=== PATIENT | male | born 1955 | race Caucasian/White ===

== ENCOUNTER 2016-05-14 10:17 | Inpatient (IN) | payer MEDICAID ==
[2016-05-14] MEDS ORDERED: NORMAL SALINE 1000 ML 1,000 ML IV ONE (10:24)
[2016-05-14 11:12] LABS: APPEARANCE,URINE CLEAR; BILIRUBIN,URINE NEGATIVE (NEGATIVE); GLUCOSE, URINE NEGATIVE (NEGATIVE); KETONES,URINE TRACE mg/dL (NEGATIVE); LEUKOCYTE ESTERASE,URINE NEGATIVE (NEGATIVE); NITRITE,URINE NEGATIVE (NEGATIVE); PROTEIN,URINE NEGATIVE (NEGATIVE); URINE SPECIFIC GRAVITY 1.018; UROBILINOGEN,URINE NEGATIVE mg/dL (<2.0)
[2016-05-14 11:25] LABS: ABSOLUTE LYMPHOCYTES (AUTO) 0.7 10^3/uL (0.5-4.7); ABSOLUTE MONOCYTES (AUTO) 0.3 10^3/uL (0.1-1.4); ABSOLUTE NEUT (AUTO) 10.9 10^3/uL (1.7-8.2); BASOPHILS % (AUTO) 0.3 % (0-2); EOSINOPHILS % (AUTO) 0.3 % (0-6); HEMATOCRIT 47.7 % (37.9-51.0); HEMOGLOBIN 15.9 g/dL (13.5-17.0); LYMPHOCYTES % (AUTO) 5.8 % (13-45); MEAN CORPUSCULAR HEMOGLOBIN 31.1 pg (27.0-33.4); MEAN CORPUSCULAR HGB CONC 33.3 g/dL (32.0-36.0); MEAN CORPUSCULAR VOLUME 93 fl (80-97); MONOCYTES % (AUTO) 2.7 % (3-13); RED BLOOD COUNT 5.11 10^6/uL (4.35-5.55); SEGMENTED NEUTROPHILS % (AUTO) 90.9 % (42-78); WHITE BLOOD COUNT 12.1 10^3/uL (4.0-10.5)
[2016-05-14 11:43] LABS: ALANINE AMINOTRANSFERASE 40 U/L (21-72); ALBUMIN 3.4 g/dL (3.5-5.0); ALKALINE PHOSPHATASE 101 U/L (38-126); ANION GAP 8 (5-19); ASPARTATE AMINO TRANSFERASE 22 U/L (17-59); BLOOD UREA NITROGEN 12 mg/dL (7-20); CALCIUM 9.2 mg/dL (8.4-10.2); CARBON DIOXIDE 24 mmol/L (22-30); CHLORIDE 110 mmol/L (98-107); CREATININE RESULT 0.79 mg/dL (0.52-1.25); GLUCOSE 106 mg/dL (75-110); POTASSIUM 4.9 mmol/L (3.6-5.0); TOTAL PROTEIN 6.5 g/dL (6.3-8.2)
[2016-05-14] MEDS ORDERED: MECLIZINE HCL 25 MG TABLET PO ONE (12:26)
[2016-05-14] MEDS ORDERED: PROMETHAZINE HCL INJ 25 MG/1 ML VIAL IV ONE (13:42)
--- NOTE | 2016-05-14 13:47 | ER Document Report ---
ED Dizziness/Weakness - General Chief Complaint: Dizziness Stated Complaint: NAUSEA Information source: Patient Notes: 61-year-old male with past medical history as recorded and presents today with the onset yesterday of feeling some decreased hearing in his left ear. Patient states he has chronic right ear loss of hearing but when he was a kid with a perforated tympanic membrane that he states is never healed. Patient also states starting last night he felt some "rapid room spinning". He also states some nausea and vomiting. He denies any and all headache, neck pain, chest pain , abdominal pain, palpitations, weakness or numbness. Patient denies any recent upper respiratory tract infections. He denies any tinnitus or taking large amounts of aspirin. TRAVEL OUTSIDE OF THE [place] IN LAST 30 DAYS: No - HPI Patient complains to provider of: Vertigo Onset: Other - See above Onset/Duration: Sudden Quality of pain: No pain Severity: Severe Pain Level: Denies Context: Vertigo Associated symptoms: Other - See above Exacerbated by: Change in position, Movement of head Baseline gait: Walks w/o assistance - Related Data Allergies/Adverse Reactions: No Known Drug Allergies Allergy (Verified 05/14/16 11:08) Past Medical History - General Information source: Patient - Social History Smoking Status: Current Every Day Smoker Cigarette use (# per day): No Chew tobacco use (# tins/day): No Smoking Education Provided: No Drug Abuse: None Family History: Reviewed & Not Pertinent Patient has suicidal ideation: No Patient has homicidal ideation: No - Past Medical History Cardiac Medical History: Reports: Hx Heart Attack Renal/ Medical History: Denies: Hx Peritoneal Dialysis Review of Systems - Review of Systems Constitutional: denies: Fever EENT: denies: Eye discharge, Nose discharge Cardiovascular: denies: Chest pain, Palpitations Respiratory: denies: Short of breath Gastrointestinal: Vomiting. denies: Abdominal pain Genitourinary: denies: Dysuria Musculoskeletal: denies: Leg swelling Skin: Other - no hives. denies: Rash Neurological/Psychological: Other - no slurred speech -: Yes All other systems reviewed and negative Physical Exam - Vital signs Vitals: Temp Pulse Resp BP Pulse Ox 98 F 57 L 18 133/83 H 98 05/14/16 10:32 05/14/16 10:32 05/14/16 10:32 05/14/16 10:32 05/14/16 10:32 Notes: Reviewed vital signs and nursing note as charted by RN. CONSTITUTIONAL: Alert and oriented and responds appropriately to questions. Well -appearing; well-nourished HEAD: Normocephalic; atraumatic EYES: PERRL; no obvious nystagmus ENT: Normal nose; no rhinorrhea; moist mucous membranes; pharynx without lesions noted; no mastoid swelling or tenderness. Patient has a right tympanic membrane rate in the center of the tympanic membrane consistent with prior history. The left tympanic membrane is very clearly visualized with no obvious effusions with good landmarks present. NECK: Supple without meningismus; non-tender; no carotid bruits; no cervical lymphadenopathy, no masses CARD: Regular rate and rhythm; no murmurs, no clicks, no rubs, no gallops; symmetric distal pulses RESP: Normal chest excursion without splinting or tachypnea; breath sounds clear and equal bilaterally; no wheezes, no rhonchi, no rales ABD/GI: Normal bowel sounds; non-distended; soft, non-tender BACK: The back appears normal and is non-tender to palpation, there is no CVA tenderness EXT: Normal ROM in all joints; non-tender to palpation; no cyanosis, no effusions, no edema SKIN: Normal color for age and race; warm; dry; good turgor; capillary refill < 2 seconds; no acute lesions noted NEURO: CN II through XII are intact. 5 out of 5 bilateral upper and lower show any strength with sensation intact to light touch. No nystagmus noted. Normal finger-nose bilaterally. PSYCH: The patient's mood and manner are appropriate. Grooming and personal hygiene are appropriate. Course - Re-evaluation Re-evalutation: 05/14/16 13:47 Given the history and physical examination with the patient's age I will provide meclizine, nausea medications, and attempt obtain a CT scan of the head and basic labs including an EKG. 05/14/16 14:37 Labs and troponin as recorded. Secondary to the vertigo, Phenergan and meclizine were provided prior to CT scan completion. Patient still has no focal neurological deficits and denies any pain. 05/14/16 15:20 EKG shows a heart of 79, normal sinus rhythm, normal axis, poor wave progression , no obvious ST elevation or depression. The radiologist called me and states what she believes to be multiple metastatic lesions to the brain. No obvious primary source located. No severe edema or signs of impending herniation. I have ordered an x-ray of the chest as well as a MRI with and without of the brain according to the radiologist's recommendations. Patient will be admitted given the vertigo, vomiting, hearing loss, and brain CT scan results. - Vital Signs Vital signs: Temp Pulse Resp BP Pulse Ox 98 F 66 17 122/85 96 05/14/16 10:32 05/14/16 13:40 05/14/16 13:40 05/14/16 13:40 05/14/16 13:40 - Laboratory Result Diagrams: 05/14/16 11:01 05/14/16 11:01 Laboratory results interpreted by me: 05/14/16 05/14/16 05/14/16 10:40 11:01 11:01 WBC 12.1 H Seg Neutrophils % 90.9 H Lymphocytes % 5.8 L Monocytes % 2.7 L Absolute Neutrophils 10.9 H Chloride 110 H Albumin 3.4 L Urine Ketones TRACE H Urine Ascorbic Acid 40 H Discharge - Discharge Clinical Impression: Lesion of brain, Vertigo Vomiting Qualifiers: Vomiting type: unspecified Vomiting Intractability: non-intractable Nausea presence: with nausea Qualified Code(s): R11.2 - Nausea with vomiting, unspecified Hearing loss of left ear Qualifiers: Hearing loss type: unspecified Qualified Code(s): H91.92 - Unspecified hearing loss, left ear Condition: Fair Disposition: ADMITTED INPATIENT Admitting Provider: Hospitalist Unit Admitted: Medical Floor
[2016-05-14] MEDS ORDERED: ONDANSETRON HCL INJ/PF 4 MG/2 ML SDV IV PRN (15:08)
[2016-05-14] MEDS ORDERED: PROMETHAZINE HCL 25 MG SUPP.RECT PR PRN (15:08)
[2016-05-14] MEDS ORDERED: ACETAMINOPHEN 325 MG TABLET PO PRN (15:08)
[2016-05-14] MEDS ORDERED: DOCUSATE SODIUM 100 MG CAPSULE PO PRN (15:08)
[2016-05-14] MEDS ORDERED: DEXTROSE 50%-WATER 25 GM/50 ML DISP.SYRIN IV PRN ×2 (15:16)
[2016-05-14] MEDS ORDERED: GLUCAGON,HUMAN RECOMB 1 MG INJ IM PRN (15:16)
[2016-05-14] MEDS ORDERED: DEXTROSE 40% GEL 15 GM TUBE PO PRN ×2 (15:16)
[2016-05-14] MEDS ORDERED: DEXAMETHASONE SOD PHOS INJ 10 MG/1 ML VIAL IV ONE (15:45)
[2016-05-14] MEDS: NORMAL SALINE 1000 ML 1,000 ML IV PRN (15:50)
--- NOTE | 2016-05-14 16:37 | PDOC H&P ---
History of Present Illness Admission Date/PCP: 05/14/16 15:08 DEBORAH CISNEROS History of Present Illness: ALMA CASTILLO is a 61 year old male with a history of prostate cancer status post radiation, myocardial infarction, hypertension, hyperlipidemia who presents to the emergency department with complaints of dizziness. Patient reports that yesterday he abruptly lost most of his hearing in his left ear. He reports then today became extremely dizzy accompanied by nausea vomiting beginning at 4 AM. Patient does report some blurred vision generalized decreased appetite. His family notices that he's been stumbling lately. CAT scan done in the emergency department reveals likely metastatic disease. He is referred to hospital service for treatment of his nausea vomiting and dizziness and further evaluation. Past Medical History Cardiac Medical History: Reports: Myocardial Infarction Past Surgical History Past Surgical History: Reports: Cardiac Catheterization, Coronary Artery Bypass Graft Social History Smoking Status: Current Every Day Smoker Frequency of Alcohol Use: None Hx Recreational Drug Use: No Hx Prescription Drug Abuse: No - Advance Directive Resuscitation Status: Full Code Surrogate healthcare decision maker:: Son Family History Family History: Malignancy Parental Family History Reviewed: Yes Children Family History Reviewed: Yes Sibling(s) Family History Reviewed.: Yes Medication/Allergy Allergies/Adverse Reactions: No Known Drug Allergies Allergy (Verified 05/14/16 11:08) Review of Systems Constitutional: PRESENT: anorexia. ABSENT: chills, fever(s), headache(s), weight gain, weight loss Eyes: PRESENT: visual disturbances Ears: PRESENT: hearing changes Nose, Mouth, and Throat: PRESENT: vertigo. ABSENT: headache(s), sore throat Cardiovascular: ABSENT: chest pain, dyspnea on exertion, edema, orthropnea, palpitations Respiratory: ABSENT: cough, dyspnea, hemoptysis, sputum Gastrointestinal: PRESENT: hematochezia - Occasionally, none recently. ABSENT: abdominal pain, constipation, diarrhea, hematemesis, melena, nausea, vomiting Genitourinary: ABSENT: dysuria, hematuria, nocturia Musculoskeletal: ABSENT: joint swelling Integumentary: ABSENT: rash, wounds Neurological: PRESENT: lack of coordination, vertigo. ABSENT: abnormal gait, abnormal speech, confusion, convulsions, dizziness, focal weakness, syncope Psychiatric: ABSENT: anxiety, depression, homidical ideation, suicidal ideation Endocrine: ABSENT: cold intolerance, heat intolerance, polydipsia, polyuria Hematologic/Lymphatic: ABSENT: easy bleeding, easy bruising Physical Exam Vital Signs: Temp Pulse Resp BP Pulse Ox 98 F 72 17 138/99 H 96 05/14/16 10:32 05/14/16 15:25 05/14/16 15:25 05/14/16 15:25 05/14/16 15:25 General appearance: PRESENT: no acute distress, well-developed, well-nourished Head exam: PRESENT: atraumatic, normocephalic Eye exam: PRESENT: conjunctiva pink, nystagmus. ABSENT: EOMI - Superior oblique impaired, PERRLA - Anisocoria, scleral icterus Ear exam: PRESENT: normal external ear exam Mouth exam: PRESENT: moist, tongue midline Neck exam: PRESENT: full ROM. ABSENT: carotid bruit, JVD, lymphadenopathy, thyromegaly, tracheal deviation Respiratory exam: PRESENT: clear to auscultation dhruv, prolonged expiratory phas , symmetrical, unlabored. ABSENT: crackles, rales, rhonchi, tachypnea, wheezes Cardiovascular exam: PRESENT: RRR, +S1, +S2. ABSENT: diastolic murmur, gallop, rubs, systolic murmur Pulses: PRESENT: normal dorsalis pedis pul Vascular exam: PRESENT: normal capillary refill GI/Abdominal exam: PRESENT: normal bowel sounds, soft. ABSENT: distended, firm , guarding, mass, organolmegaly, rebound, rigid, tenderness Rectal exam: PRESENT: deferred Extremities exam: PRESENT: full ROM. ABSENT: calf tenderness, clubbing, pedal edema Neurological exam: PRESENT: alert, awake, oriented to person, oriented to place , oriented to time, oriented to situation. ABSENT: CN II-XII grossly intact - CN palsy, CN VIII, motor sensory deficit Psychiatric exam: PRESENT: appropriate affect, normal mood. ABSENT: homicidal ideation, suicidal ideation Skin exam: PRESENT: dry, intact, warm. ABSENT: cyanosis, rash Results Laboratory Results: 05/14/16 05/14/16 05/14/16 10:40 11:01 11:01 WBC 12.1 H Hgb 15.9 Hct 47.7 Plt Count 235 Creatinine 0.79 Troponin I Urine Ketones TRACE H 05/14/16 11:01 WBC Hgb Hct Plt Count Creatinine Troponin I < 0.012 Urine Ketones Impressions: Head CT 05/14/16 12:26 IMPRESSION: Multiple high density lesions in the white matter worrisome for metastatic disease Chest X-Ray 05/14/16 15:00 IMPRESSION: COPD. NO ACUTE RADIOGRAPHIC FINDING IN THE CHEST. Assessment & Plan - Diagnosis (1) Brain metastasis Is this a current diagnosis for this admission?: YesPlan: Patient has known prostate malignancy. Though possible, unlikely to be a new primary. Will initiate patient on dexamethasone 10 mg IV every 6. MRI with contrast has been ordered. Consult oncology and obtain outside records. (2) Coronary artery disease Qualifiers: Coronary Disease-Associated Artery/Lesion type: [place] artery [place] vs. transplanted heart: [place] heart Associated angina: without angina Qualified Code(s): I25.10 - Atherosclerotic heart disease of [place] coronary artery without angina pectoris Is this a current diagnosis for this admission?: YesPlan: Patient reports history of [place] 7 and had a three-vessel CABG as well as PTCA. Patient is on metoprolol, lisinopril, Lipitor and aspirin. (3) Tobacco abuse Is this a current diagnosis for this admission?: YesPlan: Patient has been advised to stop smoking. He has been offered nicotine replacement. (4) Hyperthyroidism Is this a current diagnosis for this admission?: YesPlan: Check TSH and free T4 and free T3. Continue patient's methimazole. (5) Hematochezia Is this a current diagnosis for this admission?: YesPlan: Obtain occult blood. (6) Mild dehydration Is this a current diagnosis for this admission?: YesPlan: NS@150mL/hr. Monitor BUN/Crea (7) Vertigo Is this a current diagnosis for this admission?: YesPlan: We will improved with steroids. Have also added Ativan for intractable nausea vomiting - Time Time Spent: 50 to 70 Minutes Medications reviewed and adjusted accordingly: Yes - Inpatient Certification Based on my medical assessment, after consideration of the patient's comorbidities, presenting symptoms, or acuity I expect that the services needed warrant INPATIENT care.: Yes I certify that my determination is in accordance with my understanding of Medicare's requirements for reasonable and necessary INPATIENT services [42 CFR 412.3e].: Yes Medical Necessity: Significant Comorbidiites Make Outpatient Treatment Too Risky , Need For IV Fluids Post Hospital Care: D/C Team Facilitator Documentation
--- NOTE | 2016-05-14 19:25 | EKG REPORT ---
SEVERITY:- ABNORMAL ECG - SINUS RHYTHM ABNRM R PROG, CONSIDER ASMI OR LEAD PLACEMENT : Confirmed by: Reji Maza 14-May-2016 19:24:23
[2016-05-14] MEDS: METHIMAZOLE 5 MG TABLET PO SCH (21:46)
[2016-05-14] MEDS: ATORVASTATIN CALCIUM 80 MG TABLET PO SCH (22:00)
[2016-05-14] MEDS: METOPROLOL TARTRATE 25 MG TABLET PO SCH (22:00)
[2016-05-14] MEDS: DEXAMETHASONE SOD PHOS INJ 10 MG/1 ML VIAL IV SCH (22:00)
[2016-05-14] MEDS: LORAZEPAM INJ 2 MG/1 ML VIAL IV PRN (22:00)
[2016-05-14] MEDS ORDERED: INFLUENZA ADLT QUAD (36MOS+) 2016-17 VAC 0.5 ML SYR IM PRN (23:05)
[2016-05-14] MEDS: INSULIN LISPRO 100 UNIT/ML 3 ML VIAL SUBCUT PRN (23:27)
[2016-05-15] MEDS: DEXAMETHASONE SOD PHOS INJ 10 MG/1 ML VIAL IV SCH ×4 (02:32→20:32)
[2016-05-15 06:06] LABS: ABSOLUTE LYMPHOCYTES (AUTO) 0.7 10^3/uL (0.5-4.7); ABSOLUTE MONOCYTES (AUTO) 0.1 10^3/uL (0.1-1.4); ABSOLUTE NEUT (AUTO) 10.6 10^3/uL (1.7-8.2); BASOPHILS % (AUTO) 0.4 % (0-2); HEMATOCRIT 42.7 % (37.9-51.0); HEMOGLOBIN 14.2 g/dL (13.5-17.0); HGB HCT DIFFERENCE -0.1; LYMPHOCYTES % (AUTO) 6.1 % (13-45); MEAN CORPUSCULAR HEMOGLOBIN 30.8 pg (27.0-33.4); MEAN CORPUSCULAR HGB CONC 33.3 g/dL (32.0-36.0); MEAN CORPUSCULAR VOLUME 92 fl (80-97); MONOCYTES % (AUTO) 0.5 % (3-13); RED BLOOD COUNT 4.62 10^6/uL (4.35-5.55); RED CELL DISTRIBUTION WIDTH 13.6 % (11.5-14.0); WHITE BLOOD COUNT 11.4 10^3/uL (4.0-10.5)
[2016-05-15 06:26] LABS: ANION GAP 11 (5-19); BLOOD UREA NITROGEN 12 mg/dL (7-20); CALCIUM 9.7 mg/dL (8.4-10.2); CARBON DIOXIDE 19 mmol/L (22-30); CHLORIDE 112 mmol/L (98-107); CREATININE RESULT 0.72 mg/dL (0.52-1.25); GLUCOSE 132 mg/dL (75-110); MAGNESIUM 1.9 mg/dL (1.6-2.3); POTASSIUM 4.4 mmol/L (3.6-5.0); SODIUM 141.9 mmol/L (137-145)
--- NOTE | 2016-05-15 08:48 | PDOC CONSULTATION ---
Consultation Consult Date: 05/15/16 Attending physician:: MING TOTH Consult reason:: Concern brain lesions, hx of prostate ca History of Present Illness Admission Date/PCP: 05/14/16 15:08 DEBORAH CISNEROS Patient complains of: acute L hearing loss, nausea, dizziness History of Present Illness: 61-year-old male with known history of what sounds like early stage prostate cancer status post radiation, would've been completed and the last one to 2 years, was done through [facility], he had several six-month follow-ups per his recollection. He comes in with acute onset left hearing loss , he has lifelong right-sided hearing loss. He is also had complaints of severe nausea and vomiting after he gets up, as well as dizziness. This is all over the last 24-48 hours prior to admission. Initially, CT noncontrasted of the head was concerning for brain lesions, possibly consistent with metastatic disease, however MRI of the brain was done and this shows innumerable lesions in the cerebrum cerebellum and rose area, that radiology feels is actually cavernous hemangiomas. He feels a little bit better today. Past Medical History Cardiac Medical History: Reports: Myocardial Infarction Malignancy Medical History: Reports: Other - Prostate cancer Past Surgical History Past Surgical History: Reports: Cardiac Catheterization, Coronary Artery Bypass Graft Social History Smoking Status: Current Every Day Smoker Frequency of Alcohol Use: None Hx Recreational Drug Use: No Hx Prescription Drug Abuse: No - Advance Directive Resuscitation Status: Full Code Family History Family History: Malignancy Parental Family History Reviewed: Yes Children Family History Reviewed: Yes Sibling(s) Family History Reviewed.: Yes Medication/Allergy Allergies/Adverse Reactions: No Known Drug Allergies Allergy (Verified 05/14/16 11:08) Review of Systems Constitutional: PRESENT: headache(s), other - Nausea Cardiovascular: ABSENT: chest pain, dyspnea on exertion, edema, orthropnea, palpitations Respiratory: ABSENT: cough, hemoptysis Gastrointestinal: ABSENT: abdominal pain, constipation, diarrhea, hematemesis, hematochezia, nausea, vomiting Neurological: PRESENT: dizziness, lack of coordination, weakness Physical Exam Vital Signs: Temp Pulse Resp BP Pulse Ox 97.5 F 77 20 97/50 L 93 05/15/16 07:56 05/15/16 07:56 05/15/16 07:56 05/15/16 07:56 05/15/16 07:56 Intake & Output 05/14/16 05/15/16 05/16/16 06:59 06:59 06:59 Intake Total 1740 Output Total 300 Balance 1440 Weight 76 kg Results Laboratory Results: 05/15/16 05:04 05/15/16 05:04 05/15/16 05/15/16 05:04 05:04 WBC 11.4 H RBC 4.62 Hgb 14.2 Hct 42.7 MCV 92 MCH 30.8 MCHC 33.3 RDW 13.6 Plt Count 232 Seg Neutrophils % 93.0 H Lymphocytes % 6.1 L Monocytes % 0.5 L Eosinophils % 0.0 Basophils % 0.4 Absolute Neutrophils 10.6 H Absolute Lymphocytes 0.7 Absolute Monocytes 0.1 Absolute Eosinophils 0.0 Absolute Basophils 0.0 Sodium 141.9 Potassium 4.4 Chloride 112 H Carbon Dioxide 19 L Anion Gap 11 BUN 12 Creatinine 0.72 Est GFR ( Amer) > 60 Est GFR (Non-Af Amer) > 60 Glucose 132 H Calcium 9.7 Magnesium 1.9 Impressions: Head CT 05/14/16 12:26 IMPRESSION: Multiple high density lesions in the white matter worrisome for metastatic disease Chest X-Ray 05/14/16 15:00 IMPRESSION: COPD. NO ACUTE RADIOGRAPHIC FINDING IN THE CHEST. Head MRI 05/14/16 15:05 IMPRESSION: 1. INNUMERABLE LESIONS THROUGHOUT THE BRAIN INCLUDING THE CEREBRAL HEMISPHERES, CEREBELLUM, AND ROSE. 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 NO ENHANCING LESIONS. 2. MILD CHRONIC MICRO-VASCULAR ISCHEMIC CHANGES. 3. FLUID SIGNAL IN THE RIGHT MASTOID. Status: Image reviewed by me Assessment & Plan - Diagnosis (1) Brain metastasis Is this a current diagnosis for this admission?: YesPlan: Concern of brain metastasis, I need to talk to the radiologist directly about this read, have not seen where there was multiple cavernous hemangiomas, usually these are single events, recommended for hospitalist to send PSA, but it would be very unlikely for an early stage prostate cancer to go to the brain without going through rectoperineal adenopathy liver and lung. If the PSA is very high, then certainly a spread would be much more likely. - Time Time Spent: Greater than 70 Minutes Critical Time spent with patient: 35 or more minutes - Inpatient Certification Based on my medical assessment, after consideration of the patient's comorbidities, presenting symptoms, or acuity I expect that the services needed warrant INPATIENT care.: Yes I certify that my determination is in accordance with my understanding of Medicare's requirements for reasonable and necessary INPATIENT services [42 CFR 412.3e].: Yes Medical Necessity: Failure to Improve With Outpatient Therapy, Risk of Complication if Not Cared For in Hospital
[2016-05-15] MEDS: METOPROLOL TARTRATE 25 MG TABLET PO SCH ×2 (09:11→22:47)
[2016-05-15] MEDS: METHIMAZOLE 5 MG TABLET PO SCH ×2 (11:11→22:45)
[2016-05-15] MEDS: NORMAL SALINE 1000 ML 1,000 ML IV PRN (11:13)
[2016-05-15] MEDS: INSULIN LISPRO 100 UNIT/ML 3 ML VIAL SUBCUT PRN ×2 (12:05→15:58)
[2016-05-15] MEDS ORDERED: MECLIZINE HCL 25 MG TABLET PO PRN (13:12)
[2016-05-15] MEDS ORDERED: CALCIUM CARBONATE 500 MG TABLET PO ONE (20:40)
[2016-05-15] MEDS: CALCIUM CARBONATE 500 MG TAB.CHEW PO SCH (22:45)
[2016-05-15] MEDS: LORAZEPAM INJ 2 MG/1 ML VIAL IV PRN (22:45)
[2016-05-15] MEDS: ATORVASTATIN CALCIUM 80 MG TABLET PO SCH (22:45)
[2016-05-16] MEDS: DEXAMETHASONE SOD PHOS INJ 10 MG/1 ML VIAL IV SCH ×4 (02:44→21:29)
--- NOTE | 2016-05-16 04:17 | PDOC PROGRESS REPORT ---
Subjective Progress Note for:: 05/15/16 Subjective:: Patient reports his nausea vomiting and dizziness have improved. He is able to ambulate today. His hearing has somewhat improved.Patient denies chest pain, shortness of breath, abdominal pain, nausea, vomiting, fevers, chills, diarrhea , constipation, headache, new onset weakness. Physical Exam Vital Signs: Temp Pulse Resp BP Pulse Ox 97.5 F 77 20 97/50 L 93 05/15/16 07:56 05/15/16 07:56 05/15/16 07:56 05/15/16 07:56 05/15/16 07:56 Intake & Output 05/14/16 05/15/16 05/16/16 06:59 06:59 06:59 Intake Total 1740 Output Total 300 Balance 1440 Weight 76 kg Exam: General: Awake alert and orientedx3, no acute respiratory distress HEENT: AT/NC, PERRL, EOMI, oropharynx is moist, pink, no scleral icterus, no conjunctival injection Neck: No JVD, trachea midline Chest: Clear to auscultation bilaterally, no wheezes rhonchi or rales CV: Regular rate and rhythm, normal S1 and S2, no murmur, rub, or gallop Abdomen: Soft, nontender to palpation, nondistended, active bowel sounds; no rebound, rigidity, or guarding Extremities: No cyanosis, clubbing or edema Neuro: awake alert and oriented x3, cranial nerves grossly intact with the exception of hearing Psych: Normal mood and affect Results Laboratory Results: 05/15/16 05:04 05/15/16 05:04 05/15/16 05/15/16 05:04 05:04 WBC 11.4 H RBC 4.62 Hgb 14.2 Hct 42.7 MCV 92 MCH 30.8 MCHC 33.3 RDW 13.6 Plt Count 232 Seg Neutrophils % 93.0 H Lymphocytes % 6.1 L Monocytes % 0.5 L Eosinophils % 0.0 Basophils % 0.4 Absolute Neutrophils 10.6 H Absolute Lymphocytes 0.7 Absolute Monocytes 0.1 Absolute Eosinophils 0.0 Absolute Basophils 0.0 Sodium 141.9 Potassium 4.4 Chloride 112 H Carbon Dioxide 19 L Anion Gap 11 BUN 12 Creatinine 0.72 Est GFR ( Amer) > 60 Est GFR (Non-Af Amer) > 60 Glucose 132 H Calcium 9.7 Magnesium 1.9 Impressions: Head CT 05/14/16 12:26 IMPRESSION: Multiple high density lesions in the white matter worrisome for metastatic disease Chest X-Ray 05/14/16 15:00 IMPRESSION: COPD. NO ACUTE RADIOGRAPHIC FINDING IN THE CHEST. Head MRI 05/14/16 15:05 IMPRESSION: 1. INNUMERABLE LESIONS THROUGHOUT THE BRAIN INCLUDING THE CEREBRAL HEMISPHERES, CEREBELLUM, AND ROSE. 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 NO ENHANCING LESIONS. 2. MILD CHRONIC MICRO-VASCULAR ISCHEMIC CHANGES. 3. FLUID SIGNAL IN THE RIGHT MASTOID. Assessment & Plan - Diagnosis (1) Brain metastasis Is this a current diagnosis for this admission?: YesPlan: Patient has known prostate malignancy. Though possible, unlikely to be a new primary. Patient on dexamethasone 10 mg IV every 6. MRI with contrast reveals multiple lesions with possible AVM, mild chronic microvascular ischemic changes, and fluid in the right mastoid. PSA was essentially negative. As this could also represent a vascular disease have considered AGUILAR, will send CRP and sedimentation rate. This could also represent the sequela of patient's prior meningitis as a child. We'll continue with possible metastatic workup and obtain CT chest abdomen and pelvis. (2) Coronary artery disease Qualifiers: Coronary Disease-Associated Artery/Lesion type: [place] artery [place] vs. transplanted heart: [place] heart Associated angina: without angina Qualified Code(s): I25.10 - Atherosclerotic heart disease of [place] coronary artery without angina pectoris Is this a current diagnosis for this admission?: YesPlan: Patient reports history of [place] 7 and had a three-vessel CABG as well as PTCA. Patient is on metoprolol, lisinopril, Lipitor and aspirin. (3) Tobacco abuse Is this a current diagnosis for this admission?: YesPlan: Patient has been advised to stop smoking. He has been offered nicotine replacement. (4) Hyperthyroidism Is this a current diagnosis for this admission?: YesPlan: Check TSH and free T4 and free T3. Continue patient's methimazole. (5) Hematochezia Is this a current diagnosis for this admission?: Yes (6) Mild dehydration Is this a current diagnosis for this admission?: Yes (7) Vertigo Is this a current diagnosis for this admission?: YesPlan: Improved with steroids. Have also considered labyrinthitis in this differential. Added meclizine - Time Time Spent with patient: 35 or more minutes Medications reviewed and adjusted accordingly: Yes
[2016-05-16 05:41] LABS: ANION GAP 10 (5-19); BLOOD UREA NITROGEN 13 mg/dL (7-20); CALCIUM 9.4 mg/dL (8.4-10.2); CARBON DIOXIDE 21 mmol/L (22-30); CHLORIDE 111 mmol/L (98-107); CREATININE RESULT 0.72 mg/dL (0.52-1.25); GLUCOSE 124 mg/dL (75-110); POTASSIUM 4.2 mmol/L (3.6-5.0); SODIUM 142.1 mmol/L (137-145)
[2016-05-16 05:52] LABS: FREE T3 3.99 pg/mL (2.77-5.27)
[2016-05-16 06:02] LABS: HEMATOCRIT 39.2 % (37.9-51.0); HEMOGLOBIN 13.1 g/dL (13.5-17.0); HGB HCT DIFFERENCE 0.1; MEAN CORPUSCULAR HEMOGLOBIN 30.9 pg (27.0-33.4); MEAN CORPUSCULAR HGB CONC 33.3 g/dL (32.0-36.0); MEAN CORPUSCULAR VOLUME 93 fl (80-97); RED BLOOD COUNT 4.23 10^6/uL (4.35-5.55); RED CELL DISTRIBUTION WIDTH 13.9 % (11.5-14.0); WHITE BLOOD COUNT 18.5 10^3/uL (4.0-10.5)
[2016-05-16 06:06] LABS: THYROID STIMULATING HORMONE 0.03 uIU/mL (0.47-4.68)
[2016-05-16 06:19] LABS: BASOPHILS % (MANUAL) 0 % (0-2); EOSINOPHILS % (MANUAL) 0 % (0-6); LYMPHOCYTES % (MANUAL) 8 % (13-45); TOTAL CELLS COUNTED 100
[2016-05-16 06:20] LABS: ANISOCYTOSIS SLIGHT; BURR CELLS SLIGHT; OVALOCYTES SLIGHT; POIKILOCYTOSIS 1+
--- NOTE | 2016-05-16 09:12 | PDOC PROGRESS REPORT ---
Subjective Progress Note for:: 05/16/16 Subjective:: Had long discussion with radiology, no evidence of brain metastasis, does not show any evidence of areas that may have caused the left hearing loss and hearing loss, spent 45 minutes in discussion with very services and coordination of care. Physical Exam Vital Signs: Temp Pulse Resp BP Pulse Ox 97.3 F 90 20 108/70 96 05/16/16 08:45 05/16/16 08:45 05/16/16 08:45 05/16/16 08:45 05/16/16 08:45 Intake & Output 05/15/16 05/16/16 05/17/16 06:59 06:59 06:59 Intake Total 1740 2520 147 Output Total 300 250 Balance 1440 2270 147 Weight 76 kg 76 kg General appearance: PRESENT: no acute distress, well-developed, well-nourished Head exam: PRESENT: atraumatic, normocephalic Eye exam: PRESENT: conjunctiva pink, EOMI, PERRLA. ABSENT: scleral icterus Ear exam: PRESENT: normal external ear exam Mouth exam: PRESENT: moist, tongue midline Neck exam: ABSENT: carotid bruit, JVD, lymphadenopathy, thyromegaly Respiratory exam: PRESENT: clear to auscultation dhruv. ABSENT: rales, rhonchi, wheezes Cardiovascular exam: PRESENT: RRR. ABSENT: diastolic murmur, rubs, systolic murmur Pulses: PRESENT: normal dorsalis pedis pul Vascular exam: PRESENT: normal capillary refill GI/Abdominal exam: PRESENT: normal bowel sounds, soft. ABSENT: distended, guarding, mass, organolmegaly, rebound, tenderness Rectal exam: PRESENT: deferred Extremities exam: PRESENT: full ROM. ABSENT: calf tenderness, clubbing, pedal edema Neurological exam: PRESENT: alert, awake, oriented to person, oriented to place , oriented to time, oriented to situation, CN II-XII grossly intact. ABSENT: motor sensory deficit Psychiatric exam: PRESENT: appropriate affect, normal mood. ABSENT: homicidal ideation, suicidal ideation Skin exam: PRESENT: dry, intact, warm. ABSENT: cyanosis, rash Results Laboratory Results: 05/16/16 04:50 05/16/16 04:50 05/15/16 05/15/16 05/16/16 05:04 14:18 04:50 WBC 18.5 H RBC 4.23 L Hgb 13.1 L Hct 39.2 MCV 93 MCH 30.9 MCHC 33.3 RDW 13.9 Plt Count 233 Seg Neutrophils % Not Reportable Lymphocytes % Not Reportable Monocytes % Not Reportable Eosinophils % Not Reportable Basophils % Not Reportable Absolute Neutrophils Not Reportable Absolute Lymphocytes Not Reportable Absolute Monocytes Not Reportable Absolute Eosinophils Not Reportable Absolute Basophils Not Reportable Sodium Potassium Chloride Carbon Dioxide Anion Gap BUN Creatinine Est GFR ( Amer) Est GFR (Non-Af Amer) Glucose Calcium C-Reactive Protein < 5.0 Prostate Specific Ag 0.530 TSH Free T4 Free T3 pg/mL 05/16/16 05/16/16 04:50 04:50 WBC RBC Hgb Hct MCV MCH MCHC RDW Plt Count Seg Neutrophils % Lymphocytes % Monocytes % Eosinophils % Basophils % Absolute Neutrophils Absolute Lymphocytes Absolute Monocytes Absolute Eosinophils Absolute Basophils Sodium 142.1 Potassium 4.2 Chloride 111 H Carbon Dioxide 21 L Anion Gap 10 BUN 13 Creatinine 0.72 Est GFR ( Amer) > 60 Est GFR (Non-Af Amer) > 60 Glucose 124 H Calcium 9.4 C-Reactive Protein Prostate Specific Ag TSH 0.03 L Free T4 0.88 Free T3 pg/mL 3.99 05/14/16 22:15 Nasophary (Mrsa Only) MRSA Surveillance Culture - Final NO MRSA RECOVERED Impressions: Head CT 05/14/16 12:26 IMPRESSION: Multiple high density lesions in the white matter worrisome for metastatic disease Chest X-Ray 05/14/16 15:00 IMPRESSION: COPD. NO ACUTE RADIOGRAPHIC FINDING IN THE CHEST. Head MRI 05/14/16 15:05 IMPRESSION: 1. INNUMERABLE LESIONS THROUGHOUT THE BRAIN INCLUDING THE CEREBRAL HEMISPHERES, CEREBELLUM, AND ROSE. 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 NO ENHANCING LESIONS. 2. MILD CHRONIC MICRO-VASCULAR ISCHEMIC CHANGES. 3. FLUID SIGNAL IN THE RIGHT MASTOID. Carotid Doppler Study 05/15/16 00:00 IMPRESSION: NO HEMODYNAMICALLY SIGNIFICANT STENOSIS. Assessment & Plan - Diagnosis (1) Brain metastasis Is this a current diagnosis for this admission?: YesPlan: Thus far no evidence of brain metastasis, at this point, probably will just need to watch and see, hopefully the hearing will resolve. I did discuss her case with radiology and neurosurgery at until who suggested going ahead to do CT imaging to rule out any sort of metastatic disease that could be related to this, this is plan for today, we will review these and follow-up with patient. - Time Time Spent with patient: 35 or more minutes Critical Time spent with patient: 35 or more minutes - Inpatient Certification Based on my medical assessment, after consideration of the patient's comorbidities, presenting symptoms, or acuity I expect that the services needed warrant INPATIENT care.: Yes I certify that my determination is in accordance with my understanding of Medicare's requirements for reasonable and necessary INPATIENT services [42 CFR 412.3e].: Yes Medical Necessity: Risk of Complication if Not Cared For in Hospital
[2016-05-16] MEDS: METOPROLOL TARTRATE 25 MG TABLET PO SCH ×2 (10:06→20:52)
[2016-05-16] MEDS: METHIMAZOLE 5 MG TABLET PO SCH ×2 (10:07→21:29)
[2016-05-16] MEDS: CALCIUM CARBONATE 500 MG TAB.CHEW PO SCH ×4 (10:07→21:29)
[2016-05-16] MEDS: NORMAL SALINE 1000 ML 1,000 ML IV PRN ×2 (10:08→17:45)
[2016-05-16] MEDS: INSULIN LISPRO 100 UNIT/ML 3 ML VIAL SUBCUT PRN (16:53)
--- NOTE | 2016-05-16 18:18 | PDOC PROGRESS REPORT ---
Subjective Progress Note for:: 05/16/16 Subjective:: Patient has continued profound hearing loss. He otherwise has no particular complaints. Patient denies fever, chills, headache, new focal weakness, chest pain, shortness of breath, abdominal pain, nausea, vomiting, diarrhea, constipation. Physical Exam Vital Signs: Temp Pulse Resp BP Pulse Ox 97.1 F 85 14 97/55 L 95 05/16/16 12:00 05/16/16 16:02 05/16/16 16:02 05/16/16 16:02 05/16/16 16:02 Intake & Output 05/15/16 05/16/16 05/17/16 06:59 06:59 06:59 Intake Total 1740 2520 147 Output Total 300 250 Balance 1440 2270 147 Weight 76 kg 76 kg GENERAL: No acute distress, hearing impaired HEENT: Conjunctiva clear, external auditory canals clear, tympanic membranes normal, nonicteric, moist mucous membranes, no JVD, midline trachea RESPIRATORY: Clear to auscultation bilaterally, no wheezes, no rhonchi CARDIAC: Regular rate and rhythm, no murmurs/gallops/rubs ABDOMEN: Soft, nondistended, nontender, positive bowel sounds, no rebound, no guarding EXTREMETIES: No edema, cyanosis, clubbing NEUROLOGIC: Alert, oriented to person/place/time, CN's grossly intact, no focal deficits SKIN: No rash, wounds PSYCH: Normal mood, normal affect Results Laboratory Results: 05/16/16 04:50 05/16/16 04:50 05/16/16 05/16/16 05/16/16 04:50 04:50 04:50 WBC 18.5 H RBC 4.23 L Hgb 13.1 L Hct 39.2 MCV 93 MCH 30.9 MCHC 33.3 RDW 13.9 Plt Count 233 Seg Neutrophils % Not Reportable Lymphocytes % Not Reportable Monocytes % Not Reportable Eosinophils % Not Reportable Basophils % Not Reportable Absolute Neutrophils Not Reportable Absolute Lymphocytes Not Reportable Absolute Monocytes Not Reportable Absolute Eosinophils Not Reportable Absolute Basophils Not Reportable Sodium 142.1 Potassium 4.2 Chloride 111 H Carbon Dioxide 21 L Anion Gap 10 BUN 13 Creatinine 0.72 Est GFR ( Amer) > 60 Est GFR (Non-Af Amer) > 60 Glucose 124 H Calcium 9.4 TSH 0.03 L Free T4 0.88 Free T3 pg/mL 3.99 05/14/16 22:15 Nasophary (Mrsa Only) MRSA Surveillance Culture - Final NO MRSA RECOVERED Impressions: Head CT 05/14/16 12:26 IMPRESSION: Multiple high density lesions in the white matter worrisome for metastatic disease Chest X-Ray 05/14/16 15:00 IMPRESSION: COPD. NO ACUTE RADIOGRAPHIC FINDING IN THE CHEST. Head MRI 05/14/16 15:05 IMPRESSION: 1. INNUMERABLE LESIONS THROUGHOUT THE BRAIN INCLUDING THE CEREBRAL HEMISPHERES, CEREBELLUM, AND ROSE. 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 NO ENHANCING LESIONS. 2. MILD CHRONIC MICRO-VASCULAR ISCHEMIC CHANGES. 3. FLUID SIGNAL IN THE RIGHT MASTOID. Carotid Doppler Study 05/15/16 00:00 IMPRESSION: NO HEMODYNAMICALLY SIGNIFICANT STENOSIS. Abdomen/Pelvis CT 05/16/16 00:00 IMPRESSION: No CT evidence of metastatic disease to the chest abdomen or pelvis given history of prostate cancer Chest CT 05/16/16 00:00 IMPRESSION: No CT evidence of metastatic disease to the chest abdomen or pelvis given history of prostate cancer Assessment & Plan - Diagnosis (1) Abnormal brain MRI Is this a current diagnosis for this admission?: YesPlan: Case discussed extensively with Dr. Wagner of oncology and Dr. Orozco of radiology. It is felt that imaging does not reflect metastatic disease. Possibly more consistent with cavernous hemangiomas according to radiologist. Patient will be referred to Dr. Charli Elizabeth of neurosurgery at [facility] for further evaluation after discharge. (2) Hearing loss in left ear Qualifiers: Hearing loss type: unspecified Qualified Code(s): H91.92 - Unspecified hearing loss, left ear Is this a current diagnosis for this admission?: YesPlan: Etiology unclear. I will refer patient to neurology and ENT as outpatient. Carotid Dopplers negative. (3) Prostate cancer Is this a current diagnosis for this admission?: YesPlan: Patient is being followed by Dr. Wagner of oncology in the hospital. (4) Coronary artery disease Qualifiers: Coronary Disease-Associated Artery/Lesion type: [place] artery [place] vs. transplanted heart: [place] heart Associated angina: without angina Qualified Code(s): I25.10 - Atherosclerotic heart disease of [place] coronary artery without angina pectoris Is this a current diagnosis for this admission?: YesPlan: Continue Lipitor and metoprolol. I probably would not start an antiplatelet regimen given neuroimaging findings. (5) Hyperthyroidism Is this a current diagnosis for this admission?: YesPlan: Continue Tapazole and metoprolol. (6) Tobacco abuse Is this a current diagnosis for this admission?: Yes - Time Time Spent with patient: 35 or more minutes
[2016-05-16] MEDS ORDERED: MAG HYDROX/AL HYDROX/SIMETH SUSP 30 ML UDCUP PO PRN (20:56)
[2016-05-16] MEDS: ATORVASTATIN CALCIUM 80 MG TABLET PO SCH (21:29)
[2016-05-16] MEDS: LORAZEPAM INJ 2 MG/1 ML VIAL IV PRN (21:44)
[2016-05-17] MEDS: NORMAL SALINE 1000 ML 1,000 ML IV PRN (04:23)
[2016-05-17] MEDS: DEXAMETHASONE SOD PHOS INJ 10 MG/1 ML VIAL IV SCH (04:23)
[2016-05-17 08:01] LABS: HEMATOCRIT 39.9 % (37.9-51.0); HEMOGLOBIN 13.4 g/dL (13.5-17.0); HGB HCT DIFFERENCE 0.3; MEAN CORPUSCULAR HGB CONC 33.5 g/dL (32.0-36.0); MEAN CORPUSCULAR VOLUME 93 fl (80-97); RED BLOOD COUNT 4.31 10^6/uL (4.35-5.55); WHITE BLOOD COUNT 14.3 10^3/uL (4.0-10.5)
[2016-05-17 08:26] LABS: ANION GAP 10 (5-19); BLOOD UREA NITROGEN 15 mg/dL (7-20); CALCIUM 9.1 mg/dL (8.4-10.2); CARBON DIOXIDE 23 mmol/L (22-30); CHLORIDE 110 mmol/L (98-107); CREATININE RESULT 0.69 mg/dL (0.52-1.25); GLUCOSE 110 mg/dL (75-110); POTASSIUM 4.1 mmol/L (3.6-5.0); SODIUM 142.8 mmol/L (137-145)
[2016-05-17] MEDS: CALCIUM CARBONATE 500 MG TAB.CHEW PO SCH ×2 (08:35→11:50)
[2016-05-17 08:37] LABS: BASOPHILS % (MANUAL) 0 % (0-2); EOSINOPHILS % (MANUAL) 0 % (0-6); LYMPHOCYTES % (MANUAL) 13 % (13-45); TOTAL CELLS COUNTED 100
[2016-05-17 08:38] LABS: ANISOCYTOSIS SLIGHT; BURR CELLS 1+; POIKILOCYTOSIS 1+
--- NOTE | 2016-05-17 08:44 | PDOC PROGRESS REPORT ---
Subjective Progress Note for:: 05/17/16 Subjective:: No acute events overnight hearing stable Physical Exam Vital Signs: Temp Pulse Resp BP Pulse Ox 99.1 F 47 L 18 98/45 L 93 05/17/16 03:40 05/17/16 03:40 05/17/16 03:40 05/17/16 03:40 05/17/16 03:40 Intake & Output 05/16/16 05/17/16 05/18/16 06:59 06:59 06:59 Intake Total 2520 2173 Output Total 250 1025 Balance 2270 1148 Weight 76 kg 76.2 kg General appearance: PRESENT: no acute distress, well-developed, well-nourished Head exam: PRESENT: atraumatic, normocephalic Eye exam: PRESENT: conjunctiva pink, EOMI, PERRLA. ABSENT: scleral icterus Ear exam: PRESENT: normal external ear exam Mouth exam: PRESENT: moist, tongue midline Neck exam: ABSENT: carotid bruit, JVD, lymphadenopathy, thyromegaly Respiratory exam: PRESENT: clear to auscultation dhruv. ABSENT: rales, rhonchi, wheezes Cardiovascular exam: PRESENT: RRR. ABSENT: diastolic murmur, rubs, systolic murmur Pulses: PRESENT: normal dorsalis pedis pul Vascular exam: PRESENT: normal capillary refill GI/Abdominal exam: PRESENT: normal bowel sounds, soft. ABSENT: distended, guarding, mass, organolmegaly, rebound, tenderness Rectal exam: PRESENT: deferred Extremities exam: PRESENT: full ROM. ABSENT: calf tenderness, clubbing, pedal edema Neurological exam: PRESENT: alert, awake, oriented to person, oriented to place , oriented to time, oriented to situation, CN II-XII grossly intact. ABSENT: motor sensory deficit Psychiatric exam: PRESENT: appropriate affect, normal mood. ABSENT: homicidal ideation, suicidal ideation Skin exam: PRESENT: dry, intact, warm. ABSENT: cyanosis, rash Results Laboratory Results: 05/17/16 07:29 05/17/16 07:29 05/17/16 05/17/16 07:29 07:29 WBC 14.3 H RBC 4.31 L Hgb 13.4 L Hct 39.9 MCV 93 MCH 31.0 MCHC 33.5 RDW 14.0 Plt Count 249 Seg Neutrophils % Not Reportable Lymphocytes % Not Reportable Monocytes % Not Reportable Eosinophils % Not Reportable Basophils % Not Reportable Absolute Neutrophils Not Reportable Absolute Lymphocytes Not Reportable Absolute Monocytes Not Reportable Absolute Eosinophils Not Reportable Absolute Basophils Not Reportable Sodium 142.8 Potassium 4.1 Chloride 110 H Carbon Dioxide 23 Anion Gap 10 BUN 15 Creatinine 0.69 Est GFR ( Amer) > 60 Est GFR (Non-Af Amer) > 60 Glucose 110 Calcium 9.1 05/14/16 22:15 Nasophary (Mrsa Only) MRSA Surveillance Culture - Final NO MRSA RECOVERED Impressions: Head CT 05/14/16 12:26 IMPRESSION: Multiple high density lesions in the white matter worrisome for metastatic disease Chest X-Ray 05/14/16 15:00 IMPRESSION: COPD. NO ACUTE RADIOGRAPHIC FINDING IN THE CHEST. Head MRI 05/14/16 15:05 IMPRESSION: 1. INNUMERABLE LESIONS THROUGHOUT THE BRAIN INCLUDING THE CEREBRAL HEMISPHERES, CEREBELLUM, AND ROSE. 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 NO ENHANCING LESIONS. 2. MILD CHRONIC MICRO-VASCULAR ISCHEMIC CHANGES. 3. FLUID SIGNAL IN THE RIGHT MASTOID. Carotid Doppler Study 05/15/16 00:00 IMPRESSION: NO HEMODYNAMICALLY SIGNIFICANT STENOSIS. Abdomen/Pelvis CT 05/16/16 00:00 IMPRESSION: No CT evidence of metastatic disease to the chest abdomen or pelvis given history of prostate cancer Chest CT 05/16/16 00:00 IMPRESSION: No CT evidence of metastatic disease to the chest abdomen or pelvis given history of prostate cancer Assessment & Plan - Diagnosis (1) Brain metastasis Is this a current diagnosis for this admission?: YesPlan: Today had a long discussion with patient, also reviewed CT imaging, no evidence of metastatic disease. So this point there is no evidence of cancer anywhere, discussed that with patient, he would benefit from either neurology or neurosurgery evaluation as an outpatient, apparently there is a family member goes up to [facility] to a neurologist, it may be good to try and get him up there. Otherwise we will sign off thank you for the opportunity to assist in this patient care, spent 45 minutes in discussion with patient today - Time Time Spent with patient: 35 or more minutes Critical Time spent with patient: 35 or more minutes Anticipated discharge: Home Within: within 24 hours
[2016-05-17] MEDS: LORAZEPAM INJ 2 MG/1 ML VIAL IV PRN (08:47)
[2016-05-17 08:55] VITALS: BP 123/69
[2016-05-17] MEDS: METHIMAZOLE 5 MG TABLET PO SCH (09:45)
[2016-05-17] MEDS: METOPROLOL TARTRATE 25 MG TABLET PO SCH (09:45)
--- NOTE | 2016-05-17 10:08 | PDOC DISCHARGE SUMMARY ---
General - Admit/Disc Date/PCP Admission Date/Primary Care Provider: 05/14/16 15:08 DEBORAH CISNEROS Discharge Date: 05/17/16 - Discharge Diagnosis (1) Abnormal brain MRI Is this a current diagnosis for this admission?: Yes (2) Hearing loss in left ear Is this a current diagnosis for this admission?: Yes (3) Prostate cancer Is this a current diagnosis for this admission?: Yes (4) Coronary artery disease Is this a current diagnosis for this admission?: Yes (5) Hyperthyroidism Is this a current diagnosis for this admission?: Yes (6) Tobacco abuse Is this a current diagnosis for this admission?: Yes - Additional Information Resuscitation Status: Full Code Discharge Diet: Cardiac Discharge Activity: Activity As Tolerated Home Medications: Atorvastatin Calcium [Lipitor 80 mg Tablet] 80 mg PO QHS 05/15/16 Lisinopril [Prinivil] 20 mg PO DAILY 05/15/16 Methimazole [Tapazole 5 Mg Tablet] 7.5 mg PO BID 05/15/16 Metoprolol Tartrate [Lopressor 25 mg Tablet] 25 mg PO Q12 05/15/16 History of Present Illness Patient complains of: Hearing loss History of Present Illness: ALMA CASTILLO is a 61 year old male with a history of prostate cancer status post radiation, myocardial infarction, hypertension, hyperlipidemia who presents to the emergency department with complaints of dizziness. Patient reports that yesterday he abruptly lost most of his hearing in his left ear. He reports then today became extremely dizzy accompanied by nausea vomiting beginning at 4 AM. Patient does report some blurred vision generalized decreased appetite. His family notices that he's been stumbling lately. CAT scan done in the emergency department reveals likely metastatic disease. He is referred to hospital service for treatment of his nausea vomiting and dizziness and further evaluation. Hospital Course Hospital Course: Patient was admitted for evaluation of acute hearing loss in left ear and abnormal CT scan of the brain. CT scan of the brain was initially read as being suggestive of metastatic disease. MRI of the brain showed numerous abnormalities as well. Radiologist Dr. Pierson felt these were more consistent with multiple cavernous hemangiomas rather than metastatic disease. CT scan of chest/abdomen/pelvis did not reveal evidence of metastatic disease. Patient was evaluated by carrillo Wagner of oncology and Dr. Wagner did not feel the patient had metastatic disease. Patient does have a history of prostate cancer however his PSA was normal at 0.53. Case was discussed between Dr. Wagner of oncology and Dr. Charli Elizabeth of neurosurgery at [facility]. Patient will follow-up with Dr. Elizabeth after discharge. It's possible the patient's acute hearing loss is related to cavernous hemangiomas of the brain. Physical Exam Vital Signs: Temp Pulse Resp BP Pulse Ox 97.4 F 80 18 123/69 96 05/17/16 08:00 05/17/16 08:00 05/17/16 08:00 05/17/16 08:00 05/17/16 08:00 Intake & Output 05/16/16 05/17/16 05/18/16 06:59 06:59 06:59 Intake Total 2520 2173 Output Total 250 1025 Balance 2270 1148 Weight 76 kg 76.2 kg GENERAL: No acute distress HEENT: Conjunctiva clear, nonicteric, moist mucous membranes, no JVD, midline trachea RESPIRATORY: Clear to auscultation bilaterally, no wheezes, no rhonchi CARDIAC: Regular rate and rhythm, no murmurs/gallops/rubs ABDOMEN: Soft, nondistended, nontender, positive bowel sounds, no rebound, no guarding EXTREMETIES: No edema, cyanosis, clubbing NEUROLOGIC: Alert, oriented to person/place/time, hearing impaired otherwise CN' s grossly intact, no focal deficits SKIN: No rash, wounds PSYCH: Normal mood, normal affect Results Laboratory Results: 05/17/16 07:29 05/17/16 07:29 05/17/16 05/17/16 07:29 07:29 WBC 14.3 H RBC 4.31 L Hgb 13.4 L Hct 39.9 MCV 93 MCH 31.0 MCHC 33.5 RDW 14.0 Plt Count 249 Seg Neutrophils % Not Reportable Lymphocytes % Not Reportable Monocytes % Not Reportable Eosinophils % Not Reportable Basophils % Not Reportable Absolute Neutrophils Not Reportable Absolute Lymphocytes Not Reportable Absolute Monocytes Not Reportable Absolute Eosinophils Not Reportable Absolute Basophils Not Reportable Sodium 142.8 Potassium 4.1 Chloride 110 H Carbon Dioxide 23 Anion Gap 10 BUN 15 Creatinine 0.69 Est GFR ( Amer) > 60 Est GFR (Non-Af Amer) > 60 Glucose 110 Calcium 9.1 05/14/16 22:15 Nasophary (Mrsa Only) MRSA Surveillance Culture - Final NO MRSA RECOVERED Labs- Last Values WBC 14.3 10^3/uL (4.0-10.5) H 05/17/16 07:29 RBC 4.31 10^6/uL (4.35-5.55) L 05/17/16 07:29 Hgb 13.4 g/dL (13.5-17.0) L 05/17/16 07:29 Hct 39.9 % (37.9-51.0) 05/17/16 07:29 MCV 93 fl (80-97) 05/17/16 07:29 MCH 31.0 pg (27.0-33.4) 05/17/16 07:29 MCHC 33.5 g/dL (32.0-36.0) 05/17/16 07:29 RDW 14.0 % (11.5-14.0) 05/17/16 07:29 Plt Count 249 10^3/uL (150-450) 05/17/16 07:29 Total Counted 100 05/17/16 07:29 Seg Neutrophils % Not Reportable 05/17/16 07:29 Seg Neuts % (Manual) 83 % (42-78) H 05/17/16 07:29 Lymphocytes % Not Reportable 05/17/16 07:29 Lymphocytes % (Manual) 13 % (13-45) 05/17/16 07:29 Monocytes % Not Reportable 05/17/16 07:29 Monocytes % (Manual) 4 % (3-13) 05/17/16 07:29 Eosinophils % Not Reportable 05/17/16 07:29 Eosinophils % (Manual) 0 % (0-6) 05/17/16 07:29 Basophils % Not Reportable 05/17/16 07:29 Basophils % (Manual) 0 % (0-2) 05/17/16 07:29 Absolute Neutrophils Not Reportable 05/17/16 07:29 Abs Neuts (Manual) 11.9 10^3/uL (1.7-8.2) H 05/17/16 07:29 Absolute Lymphocytes Not Reportable 05/17/16 07:29 Abs Lymphs (Manual) 1.9 10^3/uL (0.5-4.7) 05/17/16 07:29 Absolute Monocytes Not Reportable 05/17/16 07:29 Abs Monocytes (Manual) 0.6 10^3/uL (0.1-1.4) 05/17/16 07:29 Absolute Eosinophils Not Reportable 05/17/16 07:29 Absolute Eos (Manual) 0.0 10^3/uL (0.0-0.6) 05/17/16 07:29 Absolute Basophils Not Reportable 05/17/16 07:29 Abs Basophils (Manual) 0.0 10^3/uL (0.0-0.2) 05/17/16 07:29 Platelet Comment ADEQUATE 05/17/16 07:29 Poikilocytosis 1+ 05/17/16 07:29 Anisocytosis SLIGHT 05/17/16 07:29 Ovalocytes SLIGHT 05/16/16 04:50 Alexia Cells 1+ 05/17/16 07:29 ESR 8 mm/hr (0-20) 05/15/16 14:18 Sodium 142.8 mmol/L (137-145) 05/17/16 07:29 Potassium 4.1 mmol/L (3.6-5.0) 05/17/16 07:29 Chloride 110 mmol/L (98-107) H 05/17/16 07:29 Carbon Dioxide 23 mmol/L (22-30) 05/17/16 07:29 Anion Gap 10 (5-19) 05/17/16 07:29 BUN 15 mg/dL (7-20) 05/17/16 07:29 Creatinine 0.69 mg/dL (0.52-1.25) 05/17/16 07:29 Est GFR ( Amer) > 60 (>60) 05/17/16 07:29 Est GFR (Non-Af Amer) > 60 (>60) 05/17/16 07:29 Glucose 110 mg/dL (75-110) 05/17/16 07:29 POC Glucose 105 mg/dL (70-110) 05/17/16 06:47 Calcium 9.1 mg/dL (8.4-10.2) 05/17/16 07:29 Magnesium 1.9 mg/dL (1.6-2.3) 05/15/16 05:04 Total Bilirubin 1.0 mg/dL (0.2-1.3) 05/14/16 11:01 Direct Bilirubin 0.0 mg/dL (0.0-0.3) 05/14/16 11:01 AST 22 U/L (17-59) 05/14/16 11:01 ALT 40 U/L (21-72) 05/14/16 11:01 Alkaline Phosphatase 101 U/L (38-126) 05/14/16 11:01 Troponin I < 0.012 ng/mL 05/14/16 11:01 C-Reactive Protein < 5.0 mg/L (<10.0) 05/15/16 14:18 Total Protein 6.5 g/dL (6.3-8.2) 05/14/16 11:01 Albumin 3.4 g/dL (3.5-5.0) L 05/14/16 11:01 Prostate Specific Ag 0.530 ng/mL (<4.00) 05/15/16 05:04 TSH 0.03 uIU/mL (0.47-4.68) L 05/16/16 04:50 Free T4 0.88 ng/dL (0.78-2.19) 05/16/16 04:50 Free T3 pg/mL 3.99 pg/mL (2.77-5.27) 05/16/16 04:50 Urine Color YELLOW 05/14/16 10:40 Urine Appearance CLEAR 05/14/16 10:40 Urine pH 6.0 (5.0-9.0) 05/14/16 10:40 Ur Specific [place] 1.018 05/14/16 10:40 Urine Protein NEGATIVE mg/dL (NEGATIVE) 05/14/16 10:40 Urine Glucose (UA) NEGATIVE mg/dL (NEGATIVE) 05/14/16 10:40 Urine Ketones TRACE mg/dL (NEGATIVE) H 05/14/16 10:40 Urine Blood NEGATIVE (NEGATIVE) 05/14/16 10:40 Urine Nitrite NEGATIVE (NEGATIVE) 05/14/16 10:40 Urine Bilirubin NEGATIVE (NEGATIVE) 05/14/16 10:40 Urine Urobilinogen NEGATIVE mg/dL (<2.0) 05/14/16 10:40 Ur Leukocyte Esterase NEGATIVE (NEGATIVE) 05/14/16 10:40 Urine WBC (Auto) 1 /HPF 05/14/16 10:40 Urine RBC (Auto) 2 /HPF 05/14/16 10:40 U Hyaline Cast (Auto) 2 /LPF 05/14/16 10:40 Urine Mucus (Auto) FEW /LPF 05/14/16 10:40 Urine Ascorbic Acid 40 (NEGATIVE) H 05/14/16 10:40 Impressions: Head CT 05/14/16 12:26 IMPRESSION: Multiple high density lesions in the white matter worrisome for metastatic disease Chest X-Ray 05/14/16 15:00 IMPRESSION: COPD. NO ACUTE RADIOGRAPHIC FINDING IN THE CHEST. Head MRI 05/14/16 15:05 IMPRESSION: 1. INNUMERABLE LESIONS THROUGHOUT THE BRAIN INCLUDING THE CEREBRAL HEMISPHERES, CEREBELLUM, AND ROSE. 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 NO ENHANCING LESIONS. 2. MILD CHRONIC MICRO-VASCULAR ISCHEMIC CHANGES. 3. FLUID SIGNAL IN THE RIGHT MASTOID. Carotid Doppler Study 05/15/16 00:00 IMPRESSION: NO HEMODYNAMICALLY SIGNIFICANT STENOSIS. Abdomen/Pelvis CT 05/16/16 00:00 IMPRESSION: No CT evidence of metastatic disease to the chest abdomen or pelvis given history of prostate cancer Chest CT 05/16/16 00:00 IMPRESSION: No CT evidence of metastatic disease to the chest abdomen or pelvis given history of prostate cancer Qualifiers PATEINT BEING DISCHARGED WITH ANY OF THE FOLLOWING DIAGNOSIS?: No Plan Discharge Plan: Follow-up with Dr. Charli Elizabeth of neurosurgery at [facility]. Follow -up with primary care provider. Time Spent: Less than 30 Minutes
== END 2016-05-17 12:29 | disposition home or self-care (01) | DRG 92 ==
LOC: ER 10:17 → EH 15:08 → UNDOADMIN 15:45 → 4W 18:51
PROVIDERS: ADMIT Family Medicine; ATTEND Family Medicine
DX: D18.02 Hemangioma of intracranial structures (principal); K92.1 Melena; H91.92 Unspecified hearing loss, left ear; R42 Dizziness and giddiness; R11.2 Nausea with vomiting, unspecified; I10 Essential (primary) hypertension; E78.5 Hyperlipidemia, unspecified; E05.90 Thyrotoxicosis, unspecified without thyrotoxic crisis or storm; E86.0 Dehydration; F17.210 Nicotine dependence, cigarettes, uncomplicated; I25.2 Old myocardial infarction; Z85.46 Personal history of malignant neoplasm of prostate
CPT/HCPCS: 36415; 70450; 70553; 71020; 71260; 74177; 80048; 80053; 81001; 82962; 83735; 84153; 84439; 84443; 84481; 84484; 85025; 85652; 86140; 93005; 93010; 93880; 96374; 99285; A9577; J1100; J1815; J2060; J2550; J7030